=== PATIENT | male | born 1950 | race Caucasian/White ===

== ENCOUNTER → 2018-10-21 23:22 | Outpatient (CLI) | payer MEDICARE, SELFPAY ==
[2018-10-21 18:15] VITALS: BMI 22.8
[2018-10-21 23:58] LABS: PSA,Total- Diagnostic 2.95 ng/mL (0.0-4.0)
--- OUTSIDE RECORDS SUMMARY | 2018-12-24 00:02 | XMS RPT_ITS ---
:1950 Author Organization OHIP Care Team Providers Name Role Phone Velia Perez Attending Unavailable PROVIDER, UNKNOWN Referring Unavailable Perez, Dora Primary Care Unavailable PerezVelia ACOUSTICAL TILE DRILL PRESS OPERATOR-C Attending Unavailable Perez, Dora ACOUSTICAL TILE DRILL PRESS OPERATOR-C Referring Unavailable Perez, Velia ACOUSTICAL TILE DRILL PRESS OPERATOR-C Primary Care Unavailable PROBLEMS PROBLEMS DATE TYPE CONDITION / CODE ATTENDING STATUS SOURCE 10/22/2018 Unknown N40.0 - Benign Perez, Active [place] prostatic Velia ACOUSTICAL TILE DRILL PRESS OPERATOR-C [facility] lower urinary tract Repository symptoms / N40.0(ICD-10) 03/24/2018 Admitting Bilateral primary Perez, Active [facility] Diagnosis osteoarthritis of Velia System hip / M16.0(ICD-10) Repository PROCEDURES PROCEDURES No Procedure Records FoundRESULTS RESULTS OFFICE VISIT Observed: 10/22/2018 Status: F Source: ISIS 1:35 PM [facility] REPOSITORY After Hours Family [facility] [address] [place] [address] OFFICE VISIT Date of Service: 10/21/18 MR#: [id number] Acct: [id number] Name: ASHISH REICH Rep #: [id number] : 1950 Provider: DAPHNE Perez Age/Sex: 68/M Location: [facility] Status: Signed Intake Vital Signs10/21/18 Height 5 ft 8 in 10/21/18 Weight: 150 lb Intake Visit Reasons: RX REFILL, AND BW=PSA Accompanied by: Self Is patient in pain?: No Allergies CHOCOLATE Allergy (Severe, Uncoded 07/15/18 15:57) SINUSES CLOSE UP Medications multivitamin tablet 1 tab PO DAILY 07/15/18 [History Confirmed 07/15/18] ofloxacin 0.3 % ear drops 10 drp OTIC (EAR) DAILY #10 ml 08/07/18 [Rx Confirmed 08/07/18] testosterone 0.1 ml TRANSDERMAL QDAY #3 10/21/18 [Rx Confirmed 10/21/18] [facility] Medical History BPH (benign prostatic hyperplasia) (Acute) COLONOSCOPY 2009 (Acute) Carpal tunnel syndrome, bilateral (Acute) Decreased hearing (Acute) ELEVATED PSA BIOPSY NEG (Acute) Peyronie's disease (Acute) TRAPEZIECTOMY R THUMB (Acute) Trigger finger of left hand (Acute) Surgical History H/O prostate biopsy (Acute) History of rhinoplasty (Acute) Status post fusion of wrist (Acute) Family History Mother Hypertension Father Cancer Heart disease Social History Smoking Status: Never smoker alcohol intake: current substance use type: does not use HPI HPI (General) HPI HPI: ASHISH REICH, is a 68 M who presents to the office today for medication refills and labs. ROS Const Constitutional: No anorexia, body ache, chills, excessive sweating, fatigue, fever(s), frequent falls, headache(s), decreased energy, malaise, night sweats, snoring, weakness, weight change, sleep problems, abnormal sleep pattern, change in appetite or other Eyes Eyes: No blurry vision, change in vision, double vision, discharge, dry eyes, bulging eyes, floaters, visual disturbances, eye pain, light sensitivity, spots in vision, tunnel vision or other ENT ENT: No headache(s), abnormal hearing, ear pain, ear discharge, ear pressure, hearing loss, tinnitus, dizziness/vertigo, balance problems, nosebleed/epistaxis, nasal congestion, nasal obstruction, nose pain, sinus pressure, sinus pain, nasal discharge, post nasal drip, facial pain, dental pain, dry mouth, difficulty swallowing, bad breath, hoarseness, lip swelling, mouth lesions, mouth pain, neck pain, sore throat, tongue swelling, throat swelling or other Resp Respiratory: No snoring, cough, change in phlegm color, chest congestion, excessive phlegm production, hemoptysis, pain on inspiration, shortness of breath, pain with cough, stridor, wheezing or other Cardio Cardiology: No excessive sweating, chest pain at rest, chest pain with exertion, leg pain with exertion, shortness of breath, dyspnea on exertion, generalized swelling, irregular heart rhythm, lightheadedness, orthopnea, radiating jaw, neck or arm pain, fast heart rate, slow heart rate, palpitations or other Gastro GI: No other, No Difficulty Swallowing, No abdominal pain, No belching, No bloating, No change in bowel habits, No change in stool character, No coffee ground emesis, No constipation, No cramping, No diarrhea, No heartburn, No feeling full early, No excessive flatus, No incontinent of stools, No Vomiting blood/hematemesis, No Blood in stool, No loose stools, No Black,tarry stools, No nausea/dyspepsia, No pain with swallowing, No vomiting, No hemorrhoids, No rectal pain Genitourinary: No urinary frequency, difficulty urinating, burning urination, painful urination, urinary urgency or blood in urine Musc Musculoskeletal: No neck pain, abnormal walking, joint pain, back pain, deformity, joint swelling, limited range of motion, loss of height, muscle cramps, muscle weakness, decreased muscle mass, body aches, numbness, radiating pain into limb, stiffness, tingling or other Skin Skin: No acne, hair loss, change in hair, nail changes, boil, change in skin color, dry skin, redness, excessive hair growth, yellowing of the skin, lesions, itching, rash, skin pain, skin ulcer, sores, skin swelling, wounds or other Breast Breast: No other Neuro Neurology: No frequent falls, headache(s), weakness, visual disturbances, abnormal hearing, abnormal walking, numbness, tingling, abnormal movements, abnormal speech, behavioral changes, confusion, unsteady gait/balance, dizziness, lack of coordination, loss of vision, memory loss, restless legs, fainting, tremor(s) or other Psych Psychiatric: No abnormal sleep pattern, No change in appetite, No behavioral changes, No confusion, No memory loss, No lack of enjoyment, No anxiety, No depression, No difficulty concentrating, No hopelessness, No irritability, No mood swings, No panic attacks, No paranoia, No Thoughts of harming yourself/Others, No hallucinations, No other Endo Endo: No excessive sweating, No fatigue, No other Aller/Imm Allergy/Immunologic: No lip swelling, tongue swelling, throat swelling, wheezing or itchy eyes Exam Resp Effort AND Inspection: No stridor GI Rectal Exam: No hemorrhoids Neuro Motor: No weakness Assessment AND Plan Problems 1. Erectile dysfunction due to diseases classified elsewhere N52.1 2. Peyronie disease N48.6 3. Benign prostatic hyperplasia with urinary frequency N40.1; R35.0 Patient Instructions continue the medication as prescribed follow up as needed Orders Orders: Medications New: [testosterone] testosterone 10 % cream, message 0.1 ml0.1 mL Transdermal QDAY #3 12RF with wrist into shoulder alternating with upper arm ever y morning as directed Discontinued: Coding Level of Care Code Off vis,est,level 3 Diagnoses Erectile dysfunction due to diseases classified elsewhere N52.1 Erectile dysfunction type: due to other secondary cause Peyronie disease N48.6 Benign prostatic hyperplasia with urinary frequency N40.1; R35.0 Lower urinary tract symptom detail: urinary frequency Lower urinary tract symptom presence: symptoms present 10/22/18 1335 <Electronically signed by Velia PRYOR> Date Velia PRYOR CC: PSA,TOTAL- DIAGNOSTIC Collected: 10/21/2018 Status: F Source: LAWN 6:40 PM [facility] REPOSITORY TYPE CODE TESTS RESULT OUT OF RANGE REFERENCE UNITS LAB L501.9940 0.0-4.0 ng/mL PSA, Normal DIAGNOSTIC 2.95 Result Comment: This test was performed using the TPSA assay method for the [employer] chemistry system. Values obtained with different assay methods cannot be used interchangably. When changing PSA assays in the course of monitoring a patient, additional sequential testing should be carried out to confirm baseline values. Performed By: #### L501.9940 #### [facility] [address] [place], [address] OFFICE VISIT Observed: 08/08/2018 Status: F Source: LAWN 2:11 PM [facility] REPOSITORY After Hours Family [place] [address] [place] [address] OFFICE VISIT Date of Service: 08/07/18 MR#: [id number] Acct: [id number] Name: ASHISH REICH Rep #: [id number] : 1950 Provider: DAPHNE Perez Age/Sex: 68/M Location: [facility] Status: Signed Intake Vital Signs08/07/18 Height 5 ft 8 in 08/07/18 Weight: 148 lb Intake Visit Reasons: RX REFILL Accompanied by: self Is patient in pain?: No Allergies CHOCOLATE Allergy (Severe, Uncoded 07/15/18 15:57) SINUSES CLOSE UP Medications amoxicillin 875 mg tablet 875 mg PO BID #20 tab 07/15/18 [Rx Confirmed 07/15/18] multivitamin tablet 1 tab PO DAILY 07/15/18 [History Confirmed 07/15/18] testosterone cream SUBDERMAL 07/15/18 [History Confirmed 07/15/18] clarithromycin 500 mg tablet 500 mg PO BID #14 tab 07/22/18 [Rx Confirmed 07/22/18] ciprofloxacin 500 mg tablet 500 mg PO BID #28 tab 08/07/18 [Rx Confirmed 08/07/18] ofloxacin 0.3 % ear drops 10 drp OTIC (EAR) DAILY #10 ml 08/07/18 [Rx Confirmed 08/07/18] PFSH Medical History BPH (benign prostatic hyperplasia) (Acute) COLONOSCOPY 2009 (Acute) Carpal tunnel syndrome, bilateral (Acute) Decreased hearing (Acute) ELEVATED PSA BIOPSY NEG (Acute) Peyronie's disease (Acute) TRAPEZIECTOMY R THUMB (Acute) Trigger finger of left hand (Acute) Surgical History H/O prostate biopsy (Acute) History of rhinoplasty (Acute) Status post fusion of wrist (Acute) Family History Mother Hypertension Father Cancer Heart disease Social History Smoking Status: Never smoker alcohol intake: current substance use type: does not use HPI HPI (General) HPI HPI: ASHISH REICH, is a 68 M who presents to the office today for ear pain was better on the last antibiotics then became muffled again. ROS Const Constitutional: Positive for headache(s) ENT ENT: Positive for headache(s), ear pain, dizziness/vertigo, tinnitus and hearing loss Resp Respiratory: Positive for cough Neuro Neurology: Positive for headache(s) Exam Const Constitutional: Yes cooperative, Yes healthy appearing Orientation: Yes alert, awake and oriented x3 HENMT Head: Yes normocephalic Ear: Yes hearing grossly normal bilaterally TM-Right: normal TM-Left: red, retracted Pinna-Right: within normal limits Pinna-Left: within normal limits Face: Yes normal facial exam Nose: Yes external nose normal Throat: Yes redness Neck Neck: normal visual inspection Lymphadenopathy: Yes cervical (tender L sideof the neck) Thyroid: thyroid normal Eyes General: Yes appearance normal, both eyes and all related structures Chest Chest palpation AND inspection: Yes normal inspection of the chest Resp Effort AND Inspection: Yes normal respiratory effort Auscultation: Yes clear to auscultation bilaterally Cardio Palpitation: Yes normal PMI Rate: Yes regular rate Rhythm: Yes regular rhythm GI Inspection: Yes normal to inspection Auscultation: Yes normal bowel sounds Musc Cervical Spine: Yes cervical ROM normal Thoracic/Lumbar Spine: Yes thoracic and lumbar spine normal to inspection Skin General: no rashes or lesions noted Lesions: Yes no lesions Extrem General: Yes normal to inspection Neuro General: Yes alert and oriented x3 Psych Appearance: Positive grossly normal Mood: Positive congruent mood Affect: Positive normal affect Assessment AND Plan Problems 1. Left otitis media with effusion H65.92 2. Dizziness R42 3. Lymphadenopathy R59.1 Patient Instructions Take the antibiotic till gone with food or not for 10 days use the ear drops daily for 10 days L ear follow up if not improving and will refer to ENT Medications New: Coding Level of Care Code Off vis,est,level 3 Diagnoses Left otitis media with effusion H65.92 Dizziness R42 Lymphadenopathy R59.1 08/08/18 1411 <Electronically signed by Velia PRYOR> Date Velia PRYOR CC: OFFICE VISIT Observed: 07/22/2018 Status: F Source: ISIS 2:00 PM [facility] REPOSITORY After Hours Family [facility] [address] [place] [address] OFFICE VISIT Date of Service: 07/22/18 MR#: [id number] Acct: [id number] Name: ASHISH REICH Rep #: [id number] : 1950 Provider: DAPHNE Perez Age/Sex: 68/M Location: [facility] Status: Signed Intake Vital Signs07/22/18 Height 5 ft 8 in 07/22/18 Weight: 148 lb Intake Visit Reasons: ears bothering him Accompanied by: self Is patient in pain?: Yes Allergies CHOCOLATE Allergy (Severe, Uncoded 07/15/18 15:57) SINUSES CLOSE UP Medications amoxicillin 875 mg tablet 875 mg PO BID #20 tab 07/15/18 [Rx Confirmed 07/15/18] multivitamin tablet 1 tab PO DAILY 07/15/18 [History Confirmed 07/15/18] testosterone cream SUBDERMAL 07/15/18 [History Confirmed 07/15/18] clarithromycin 500 mg tablet 500 mg PO BID #14 tab 07/22/18 [Rx Confirmed 07/22/18] PFSH Medical History BPH (benign prostatic hyperplasia) (Acute) COLONOSCOPY 2009 (Acute) Carpal tunnel syndrome, bilateral (Acute) Decreased hearing (Acute) ELEVATED PSA BIOPSY NEG (Acute) Peyronie's disease (Acute) TRAPEZIECTOMY R THUMB (Acute) Trigger finger of left hand (Acute) Surgical History H/O prostate biopsy (Acute) History of rhinoplasty (Acute) Status post fusion of wrist (Acute) Family History Mother Hypertension Father Cancer Heart disease Social History Smoking Status: Never smoker alcohol intake: current substance use type: does not use HPI HPI (General) HPI HPI: ASHISH REICH, is a 68 M who presents to the office today for ear pain and pressure in the head and headaches. Did not go to work becasue feeling worse Finished the course of amox and was starting to drain but then started up again , unable to hear . ROS Const Constitutional: Positive for chills, fever(s) and headache(s) ENT ENT: Positive for headache(s), ear pain, balance problems, dizziness/vertigo, nasal congestion, post nasal drip, nasal discharge and facial pain Resp Respiratory: Positive for cough Cough: Yes non-productive Gastro GI: Yes loose stools, Yes nausea/dyspepsia Neuro Neurology: Positive for headache(s) Exam Const Constitutional: Yes cooperative Nutritional Appearance: Yes average body habitus Orientation: Yes oriented x3 HENMT Head: Yes normocephalic Ear: Yes hearing grossly normal bilaterally TM-Right: red TM-Left: red, wax Pinna-Right: within normal limits Pinna-Left: within normal limits Face: Yes normal facial exam Nose: Yes external nose normal Throat: Yes redness, Yes swollen Neck Neck: normal visual inspection Eyes General: Yes appearance normal, both eyes and all related structures Resp Effort AND Inspection: Yes normal respiratory effort Auscultation: Yes clear to auscultation bilaterally Cardio Palpitation: Yes normal PMI Rate: Yes regular rate Rhythm: Yes regular rhythm GI Inspection: Yes normal to inspection Musc Cervical Spine: Yes cervical ROM normal Thoracic/Lumbar Spine: Yes thoracic and lumbar spine normal to inspection Skin General: no rashes or lesions noted Extrem General: Yes normal to inspection Neuro General: Yes oriented x3 Psych Appearance: Positive grossly normal Office Procedures Cerumen Removal BMS Cerumen Removal Procedure Procedure performed by: Velia Perez Method of removal: loop and irrigation From which ear canal was the cerumen removed: left Amount of Cerumen: moderate Patient tolerated procedure: well Complications: none Assessment AND Plan Problems 1. Dizziness R42 2. Impacted cerumen of left ear H61.22 3. Recurrent acute serous otitis media of both ears H65.06 Patient Instructions Take the antibiotics till gone with food or after eating push the fluids and continue using decongestants for the time on the antibiotics Orders Orders: Medications New: Coding Level of Care Code Off vis,est,level 3 Diagnoses Dizziness R42 Impacted cerumen of left ear H61.22 Laterality: left Recurrent acute serous otitis media of both ears H65.06 Otitis media type: serous Chronicity: acute Recurrence: recurrent 07/22/18 1400 <Electronically signed by Velia PRYOR> Date Velia PRYOR CC: OFFICE VISIT Observed: 07/15/2018 Status: F Source: ISIS 6:38 PM [facility] REPOSITORY After Hours Family Medicine [address] [place] [address] OFFICE VISIT Date of Service: 07/15/18 MR#: [id number] Acct: [id number] Name: ASHISH REICH Rep #: [id number] : 1950 Provider: DAPHNE Perez Age/Sex: 68/M Location: [facility] Status: Signed Intake Vital Signs07/15/18 Height 5 ft 8 in 07/15/18 Weight: 147 lb Intake Visit Reasons: ear pain Accompanied by: self Is patient in pain?: Yes Allergies CHOCOLATE Allergy (Severe, Uncoded 07/15/18 15:57) SINUSES CLOSE UP Medications amoxicillin 875 mg tablet 875 mg PO BID #20 tab 07/15/18 [Rx Confirmed 07/15/18] multivitamin tablet 1 tab PO DAILY 07/15/18 [History Confirmed 07/15/18] testosterone cream SUBDERMAL 07/15/18 [History Confirmed 07/15/18] PFSH Medical History BPH (benign prostatic hyperplasia) (Acute) COLONOSCOPY 2009 (Acute) Carpal tunnel syndrome, bilateral (Acute) Decreased hearing (Acute) ELEVATED PSA BIOPSY NEG (Acute) Peyronie's disease (Acute) TRAPEZIECTOMY R THUMB (Acute) Trigger finger of left hand (Acute) Surgical History H/O prostate biopsy (Acute) History of rhinoplasty (Acute) Status post fusion of wrist (Acute) Family History Mother Hypertension Father Cancer Heart disease Social History Smoking Status: Never smoker alcohol intake: current substance use type: does not use HPI HPI (General) HPI HPI: Ashish Reich, is a 68 M who presents to the office today for L ear pain for 10 days. not used anything. ROS Const Constitutional: Positive for headache(s) ENT ENT: Positive for headache(s) and ear pain (L side) Neuro Neurology: Positive for headache(s) Exam Const Constitutional: Yes cooperative, Yes healthy appearing Orientation: Yes alert, awake and oriented x3 HENMT Head: Yes normocephalic Ear: Yes hearing grossly normal bilaterally TM-Right: normal TM-Left: red Pinna-Right: within normal limits Pinna-Left: within normal limits Face: Yes normal facial exam Nose: Yes external nose normal Mouth: Yes oral mucosae normal Teeth and Gingiva: Yes dentition normal Throat: Yes posterior oropharynx normal Neck Neck: normal visual inspection Thyroid: thyroid normal Eyes General: Yes appearance normal, both eyes and all related structures Chest Chest palpation AND inspection: Yes normal inspection of the chest Resp Effort AND Inspection: Yes normal respiratory effort Auscultation: Yes clear to auscultation bilaterally Cardio Palpitation: Yes normal PMI Rate: Yes regular rate Rhythm: Yes regular rhythm GI Inspection: Yes normal to inspection Auscultation: Yes normal bowel sounds Musc Cervical Spine: Yes cervical ROM normal Thoracic/Lumbar Spine: Yes thoracic and lumbar spine normal to inspection Skin General: no rashes or lesions noted Lesions: Yes no lesions Extrem General: Yes normal to inspection Neuro General: Yes alert and oriented x3 Psych Appearance: Positive grossly normal Mood: Positive congruent mood Affect: Positive normal affect Assessment AND Plan Problems 1. Acute serous otitis media of left ear, recurrence not specified H65.02 2. Lymphadenopathy R59.1 Patient Instructions Take the antibiotic till gone Push the fluids . follow up as needed Medications New: Coding Level of Care Code Off vis,est,level 3 Diagnoses Acute serous otitis media of left ear, recurrence not specified H65.02 Otitis media type: serous Chronicity: acute Recurrence: not specified as recurrent Lymphadenopathy R59.1 07/15/18 1838 <Electronically signed by Velia PRYOR> Date Velia PRYOR CC: CR HIP W/ PELVIS 2 Observed: 03/24/2018 Status: F Source: [employer] OR 3 VIEWS LEFT 1:55 PM SYSTEM REPOSITORY Patient Name: ASHISH REICH Diagnostic Radiology Exam Date/Time 03/24/2018 12:30:00 EDT Exam CR Hip w/ Pelvis 2 or 3 Views Left n Ordering Physician EMMA PEREZ DORA L Accession Number [id number] CPT4 Codes 49884 () Reason For Exam pain Report LEFT HIP CLINICAL INDICATION: Left hip pain A single AP view of the pelvis followed by AP and lateral views of the left hip were obtained. COMPARISON: None FINDINGS: No fracture or dislocation of the pelvis or left hip is identified. Mild loss of joint space and acetabular spurring is noted within the left and right hip joints. The sacroiliac joints appear grossly unremarkable. No lytic or blastic bony lesions are seen. IMPRESSION: No fracture or dislocation of the pelvis or left hip. Mild osteoarthritis of the bilateral hips. Report Dictated on Final Dictating Physician: BISHNU HOLLOWAY Signed Date and Time: 03/24/2018 1:55 pm Signed by: BISHNU HOLLOWAY Transcribed Date and Time: 03/24/2018 1:56 ALLERGIES ALLERGIES DATE TYPE / CODE NAME / CODE REACTION SEVERITY SOURCE 07/15/2018 Miscellaneous CHOCOLATE SINUSES CLOSE SV [facility] Allergy/[id number](S [facility] Hospital Repository ENCOUNTERS ENCOUNTERS ADMIT/DISCHARGE ACCOUNT NUMBER ADMITTING ENCOUNTER LOCATION SOURCE CLASS 10/21/2018 [id number] [facility] ding:[facility]SPEC Repository 03/24/2018 [id number] [facility] Repository PAYERS PAYERS ENCOUNTER GUARANTOR PAYER SUBSCRIBER SOURCE 10/21/2018 [facility]A [id number] Insurance:MEDICARE [place]FIELDDOB: [facility] PART A [facility] [id number] Repository [id number]: [phone] [id number] [phone] () Date:2018-10-21 10/21/2018 [facility] Number: Effective Repository Date:2018-10-21 03/24/2018 [facility] Insurance:MedicarePol [place]DOB: System [id number] icy Number: Effective [id number] Repository Center Date:2016-02-29 [place], [place] [address]Aau: () 03/24/2018 Secondary [facility] Insurance:MedicarePol Elemental Cyber SecuritybergerDOB: System icy Number: Effective [id number] Repository Date:2017-03-30
== END ==
PROVIDERS: Family Provider Nurse Practitioner; PCP Nurse Practitioner; Referring Provider Nurse Practitioner; Visit Provider Nurse Practitioner
DX: N40.0 Benign prostatic hyperplasia without lower urinary tract symptoms (principal)
CPT/HCPCS: 84153

== ENCOUNTER → 2019-05-05 | Outpatient (CLI) | payer MEDICARE, SELFPAY ==
[2019-05-04 18:09] VITALS: BMI 22.8
[2019-05-05 22:28] LABS: Absolute Lymphocyte Count 1.85 X10^3/uL (0.83-4.51); Absolute Neutrophil Count 3.7 X10^3/uL (2.0-7.7); Basophil# 0.06 X10^3/uL; Basophil% 0.9 % (0-1); Eosinophil# 0.45 X10^3/uL; Eosinophils% 6.8 % (0-5); Hematocrit 42.6 % (40-54); Hemoglobin 14.2 g/dL (13.0-16.5); Lymphocyte # 1.85 X10^3/ul (4.0); Lymphocyte % 27.9 % (19-41); Mean Corp Hgb Conc 33.3 g/dL (32-36); Mean Corpuscular Hgb 30.7 pg (27.0-32.0); Mean Platelet Vol. 11.8 fl (6.2-12.0); Monocyte# 0.57 X10^3/uL; Monocyte% 8.6 % (0-10); NRBC Flagged by Analyzer 0 % (0-5); Neutrophil # 3.69 X10^3/uL (2.7-7.7); Neutrophil % 55.5 % (47-70); Platelet Count 224 K/mm3 (150-450); RBC Distribution Width CV 13.7 % (11.6-14.6); RBC Distribution Width SD 46.2 fl (35.1-43.9); Red Blood Count 4.63 M/mm3 (4.6-6.2); White Blood Count 6.6 K/mm3 (4.4-11.0)
[2019-05-05 22:40] LABS: PSA,Total- Diagnostic 2.71 ng/mL (0.0-4.0)
== END | disposition home or self-care (01) ==
PROVIDERS: Family Provider Nurse Practitioner; PCP Nurse Practitioner; Referring Provider Nurse Practitioner; Visit Provider Nurse Practitioner
DX: N40.0 Benign prostatic hyperplasia without lower urinary tract symptoms (principal); E29.1 Testicular hypofunction; N48.6 Induration penis plastica
CPT/HCPCS: 84153; 84402; 85025

== ENCOUNTER → 2019-10-14 21:49 | Outpatient (CLI) | payer MEDICARE, SELFPAY ==
[2019-10-14 17:12] VITALS: BMI 22.8
[2019-10-14 22:20] LABS: Absolute Lymphocyte Count 1.83 X10^3/uL (0.83-4.51); Basophil# 0.08 X10^3/uL; Basophil% 1.1 % (0-1); Eosinophil# 0.44 X10^3/uL; Eosinophils% 6.3 % (0-5); Hematocrit 41.6 % (40-54); Hemoglobin 13.8 g/dL (13.0-16.5); Lymphocyte # 1.83 X10^3/ul (4.0); Lymphocyte % 26.1 % (19-41); Mean Corp Hgb Conc 33.2 g/dL (32-36); Mean Corpuscular Hgb 30.2 pg (27.0-32.0); Monocyte# 0.66 X10^3/uL; Monocyte% 9.4 % (0-10); NRBC Flagged by Analyzer 0 % (0-5); Neutrophil # 3.98 X10^3/uL (2.7-7.7); Platelet Count 230 K/mm3 (150-450); RBC Distribution Width CV 12.8 % (11.6-14.6); RBC Distribution Width SD 42.5 fl (35.1-43.9); Red Blood Count 4.57 M/mm3 (4.6-6.2)
[2019-10-14 22:22] LABS: ALB/GLOB Ratio 1.3 RATIO (0.9-2.4); AST(SGOT) 23 U/L (15-37); Alanine Aminotransfer ALT/SGPT 27 U/L (16-61); Albumin, Serum 4.1 g/dL (3.2-5.0); Alkaline Phosphatase 42 U/L (45-117); Anion Gap 6 (5-15); BUN 21 mg/dL (7-18); BUN/Creat Ratio 16.9 RATIO (10-20); Calcium,Total 8.9 mg/dL (8.5-10.1); Chloride 107 mmol/L (98-107); Cholesterol 214 mg/dL (200); Creatinine, Serum 1.24 mg/dL (0.70-1.30); EST Glomerular Filtration Rate 62 mL/min (>60); Est Glom Filt Rate - Afr Amer 74 mL/min (>60); Globulin 3.2 g/dL (2.2-4.2); Glucose 90 mg/dL (74-106); High Density Lipoprotein 92 mg/dL; PSA,Total- Diagnostic 2.92 ng/mL (0.0-4.0); Potassium 3.9 mmol/L (3.5-5.1); Protein, Total 7.3 g/dL (6.4-8.2); Sodium Level 139 mmol/L (136-145); Triglycerides 68 mg/dL; Very Low Density Lipoprotein 14 mg/dL (5-40)
== END ==
PROVIDERS: Referring Provider Nurse Practitioner; Visit Provider Nurse Practitioner
DX: N40.0 Benign prostatic hyperplasia without lower urinary tract symptoms (principal); N48.6 Induration penis plastica; E78.00 Pure hypercholesterolemia, unspecified
CPT/HCPCS: 80053; 80061; 84153; 85025

== ENCOUNTER → 2019-11-17 | Outpatient (CLI) | payer MEDICARE, SELFPAY ==
[2019-10-14 17:12] VITALS: BMI 22.8
[2019-11-17 11:12] LABS: Mucous, Urine 0 SEEN /hpf (<or=2+)
[2019-11-17 11:41] LABS: Color, Urine Yellow (Yellow); Glucose, Dipstick Normal (Normal); Ketone-Dipstick 5 mg/dl (Negative); Leukocyte Esterase-Dipstick 25 /ul (Negative); Nitrite-Dipstick Negative (Negative); Occult Blood-Urine 10 /ul (Negative); Protein-Dipstick Negative (Negative); Urine Bilirubin Dipstick Negative (Negative); Urine Clarity Clear (Clear); Urine Urobilinogen Normal (Normal)
[2019-11-17 11:54] LABS: Bacteria RARE /hpf (None Seen); Red Blood Cells-Urine 0-5 SEEN /hpf (0-5); Squamous Epithelial Cells - UA 0-5 SEEN /hpf (0-5); White Blood Cells 0-5 SEEN /hpf (0-5)
== END | disposition home or self-care (01) ==
LOC: LABSPEC 10:50
PROVIDERS: PCP Nurse Practitioner; Referring Provider Nurse Practitioner; Visit Provider Urology
DX: R31.9 Hematuria, unspecified (principal)
CPT/HCPCS: 81001

== ENCOUNTER → 2020-04-27 | Outpatient (CLI) | payer MEDICARE, SELFPAY ==
[2019-10-14 17:12] VITALS: BMI 22.8
--- NOTE | 2020-04-27 | IMM_PTH ---
PATIENT: ASHISH REICH LOC: [facility] U#:[id number] AGE/SX: 70/M ROOM: RE04/27/[address]: ROYA Jha : 1950 BED: DIS: 04/27/2020 SPEC #: [id number] RECD: 04/29/20 12:01 STATUS: NA DEWAYNE #: [id number] FRANK: 04/27/20 00:[address]: Velia Perez NP DEPT: IMMUNOHISTOCHEMISTRY RECD BY: Ange Mcgraw Tissues: Skin of chest Procedures: P53 (initial) KI-67 (add) PHYSICIAN & INSTITUTION [place] [address] SPECIMEN INFORMATION: Tissue Source: Left chest wall lesion Clinical Info: Left chest wall lesion Specimen Number: [id number] CPT code: 14352, 98408 METHODOLOGY: Deparaffinized sections of prefer/formalin-fixed tissue or PAP/DQ stained slides are incubated with monoclonal/polyclonal antibodies/oligonucleotide probes. Localization is made via biotin free immunoperoxidase method. Appropriate controls are performed and reacted as expected. Results on target cell population are indicated in the following table: RESULTS: ANTIBODY / CLONE RESULT P53 (DO-7) positive, 8% Ki-67 (30-9) positive, low These tests were developed and their performance characteristics determined by [facility]. They may not have been cleared or approved by the U.S. Food and Drug Administration. The FDA has determined that such clearance or approval is not necessary. The above immunohistochemical/dualISH markers are ordered and reviewed by the Pathologist. INTERPRETATION: Left chest wall lesion, biopsy: Atypical squamous lesion with verrucoid features. AM:aline 05/03/20 Case has been reviewed in consultation with Dr. Bob who concurs with the above diagnosis. IDC:SJ
--- NOTE | 2020-04-27 | LES_PTH ---
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 AM:aline 04/29/20 COMMENT Immunohistochemistry ([id number]) supports the above diagnosis. If lesion is present at this site, complete excision is recommended. Case has been reviewed in consultation with Dr. Bob who concurs with the above diagnosis. IDC:[email or web address] MICROSCOPIC DESCRIPTION Slides are reviewed. GROSS DESCRIPTION Received is one container labeled with the patient's name and not further designated. The specimen consists of a punch biopsy of kilgore-white skin measuring 0.5 x 0.4 x 0.3 cm. The entire specimen is submitted in one cassette. / BELINDA:aline 04/28/20 TC:? CPT: 53964
== END | disposition home or self-care (01) ==
PROVIDERS: PCP Nurse Practitioner; Referring Provider Nurse Practitioner; Visit Provider Nurse Practitioner
DX: L98.9 Disorder of the skin and subcutaneous tissue, unspecified (principal)
CPT/HCPCS: 88305; 88341; 88342

== ENCOUNTER 2021-06-21 09:40 | Day surgery (SDC) | payer MEDICARE, SELFPAY ==
[2021-06-21] VITALS (7 sets, daily range): BP systolic 113–151; BP diastolic 78–97; PULSE 71–103; RESP 14–16; TEMP 36.1–36.7; O2SAT 94–98; BMI 22.8
[2021-06-21] MEDS: Lactated Ringers 1,000 ML 100 ML IV ×2 (09:55→12:31)
--- NOTE | 2021-06-21 10:52 | EKG12_ITS ---
Test Reason : PRE OP Blood Pressure : / mmHG Vent. Rate : 100 BPM Atrial Rate : 100 BPM P-R Int : 172 ms QRS Dur : 076 ms QT Int : 336 ms P-R-T Axes : 066 032 060 degrees QTc Int : 433 ms Normal sinus rhythm Nonspecific ST abnormality Abnormal ECG Confirmed by LIUDMILA LIN, GANGA ([id number]), manager editorial LYDIA MOORE ([id number]) on 06/21/2021 10:53:31 AM Referred By: Mark Preston Confirmed By:GANGA NUR MD
[2021-06-21] MEDS: Cefazolin 2 GM in 0.9% Normal Saline 100 ML IV (11:54)
--- NOTE | 2021-06-21 12:00 | PROS_PTH ---
PATIENT: ASHISH REICH LOC: [facility] U#:[id number] AGE/SX: 71/M ROOM: RE06/21/[address]: Dr. Mark Preston MD : 1950 BED: DIS: 06/21/2021 SPEC #: [id number] RECD: 06/21/21 13:12 STATUS: NA DEWAYNE #: [id number] FRANK: 06/21/21 12:[address]: Mark Preston DEPT: SURGICAL PATHOLOGY RECD BY: Roxane Means ENTERED: 06/21/21 14:23 SP TYPE: TURP OTHR DR: Velia Perez, SORT MANAGER-C Tissues: Prostate, NOS Procedures: Surgery Specimen Level IV HEADER OPERATION: Cysto, TUR prostate, Olympus PRE-OP DIAGNOSIS: Benign prostatic hyperplasia, lower urinary tract symptoms TISSUE SUBMITTED: Prostate tissue MICROSCOPIC DIAGNOSIS Prostate, transurethral resection: Benign nodular hyperplasia, glandular and stromal types. Chronic prostatitis with focal acute prostatitis. AM:aline 06/23/2021 MICROSCOPIC DESCRIPTION Slides are reviewed. GROSS DESCRIPTION Received is one container labeled with the patient's name and designated prostate tissue. The specimen consists of multiple irregular fragments of pink-kilgore, rubbery, soft tissue that in aggregate weigh 5.7 gm and measure in aggregate 4 x 3 x 1.5 cm. The entire specimen is submitted in six cassettes. / BELINDA:aline 06/22/21 TC:2 CPT: 98110
--- NOTE | 2021-06-21 12:07 | PCM.DC ---
Discharge Instructions Diet Discharge Diet: No restrictions Activity Discharge Activity: Return to Normal Activity and May Not Drive (while taking narcotic pain medications.) Dressing / Incision Call your doctor if you observe: Fever of 101 or Higher Catheter: Wills to leg bag and Wills to large bag Drain: [place] Follow Up Care Please Follow Up With: Mark Preston MD When: Call [phone] for an appointment Test Results: Test results from this visit will be discussed in further detail at your follow-up appointment, if applicable. Discharge Plan Admission Primary Reason for Your Visit: YADIRA Attending Provider: Mark Preston Primary Care Provider: Velia Perez NP Instructions Patient Instructions: TURP Home Recovery Discharge Orders/Prescriptions Prescriptions: New ciprofloxacin HCl [Cipro] 500 mg tablet 500 mg PO BID Qty: 14 RF: 0 docusate sodium [Colace] 100 mg capsule 100 mg PO BID Qty: 20 RF: 0 oxycodone-acetaminophen 5-325 mg tablet 1 tab PO Q6H PRN (Reason: pain) 7 Days Qty: 14 RF: 0 Continued multivitamin [Daily Multi-Vitamin] tablet 1 tab PO DAILY RF: 0 alfuzosin 10 mg tablet extended release 24 hr 10 mg PO DAILY RF: 0 testosterone 1 ml TOPICAL DAILY Qty: 3 RF: 6 magnesium 200 mg Tablet 400 mg PO DAILY RF: 0 omega-3 fatty acids Capsule 1,000 mg PO DAILY RF: 0 Referrals / Follow Up: Mark Preston MD [STAFF PHYSICIAN] - Velia Perez NP, METAL MELTER-C [Primary Care Provider] - Disposition Disposition (needs filled in before D/C Order can be placed): Home, Self Care
--- NOTE | 2021-06-21 12:57 | OP.PCM_ITS ---
Problems Associated Problem List Diagnoses (1) BPH (benign prostatic hyperplasia): Report of Operation Date of Procedure: 06/21/21 Pre-Operative Diagnosis: BPH with obstruction Post-Operative Diagnosis: Same Description of Surgical Findings:: In the preoperative setting I discussed with the patient how the surgery would be done with expect afterwards. We discussed how a prostate resection is done and we discussed the risk of the surgery including, bleeding, infection, retrograde ejaculation, changes with ejaculation or intercourse,. We discussed the possibility that the resection of the prostate may not alleviate his urinary symptoms. We discussed the small risk of developing scar tissue along the urethral channel and strictures. We also discussed the chance of the prostate could grow back and he may need further surgery or treatment in the future for prostate problems. Patient was taken back to the operating room, timeout procedure was performed, he was identified and marked and placed on the operating room table. He underwent general anesthesia. He was placed in dorsolithotomy position. Penis and testicles were prepped and draped in usual sterile fashion. Went into the bladder using the visual obturator with a resectoscope. Once inside the bladder identified the right and left ureteral orifice. I then identified the prostate and the anatomy of the prostate. I marked out the area of the sphincter and the verumontanum was identified. I then proceeded with the prostate resection first resected the median lobe. And then resected the right lobe of the prostate. Then to resect the left lobe of the prostate. I then resected the apical tissue of the prostate. Made sure that there was no injury to the sphincter or the verumontanum was still intact. At the end of the resection all the chips were Ellik out of the bladder. I then identified the left and right ureteral orifice and these were confirmed to be in good position and effluxing and not injured. The resectoscope was removed, a 20 Arabic catheter was placed into the bladder. And the urine was fairly light pink color and draining normally. He was taken back to the PACU in good condition Surgeon: lilia Type of Anesthesia: General Drains: 20 fr jaquez Admit VTE Documentation VTE Present on Admission: No VTE Mechan Device Prophylaxis: SCD's VTE Pharm Prophylaxis ordered?: No
== END 2021-06-21 15:09 | disposition home or self-care (01) ==
LOC: SDC 09:46 → AC 09:47
PROVIDERS: PCP Nurse Practitioner; Referring Provider Urology; Visit Provider Urology
PROC: (CPT 52601; principal; 2021-06-21 11:50)
DX: N40.1 Benign prostatic hyperplasia with lower urinary tract symptoms (principal); N13.8 Other obstructive and reflux uropathy; R33.8 Other retention of urine
CPT/HCPCS: 00914; 52601; 87426; 88305; 93005; C9803; J7120; J2405

== ENCOUNTER → 2021-09-13 | Outpatient (CLI) | payer MEDICARE, SELFPAY ==
[2021-09-13 21:50] LABS: Absolute Lymphocyte Count 1.76 X10^3/uL (0.83-4.51); Absolute Neutrophil Count 3.8 X10^3/uL (2.0-7.7); Basophil# 0.11 X10^3/uL; Basophil% 1.6 % (0-1); Eosinophil# 0.42 X10^3/uL; Eosinophils% 6.2 % (0-5); Hemoglobin 14.5 g/dL (13.0-16.5); Lymphocyte # 1.76 X10^3/ul (0.83-4.51); Lymphocyte % 25.8 % (19-41); Mean Corp Hgb Conc 33.7 g/dL (32-36); Mean Corpuscular Hgb 30.3 pg (27.0-32.0); Mean Platelet Vol. 11.9 fl (6.2-12.0); Monocyte# 0.71 X10^3/uL; Monocyte% 10.4 % (0-10); NRBC Flagged by Analyzer 0 % (0-5); Neutrophil % 55.7 % (47-70); Platelet Count 220 K/mm3 (150-450); RBC Distribution Width CV 13.7 % (11.6-14.6); RBC Distribution Width SD 45.1 fl (35.1-43.9); Red Blood Count 4.78 M/mm3 (4.6-6.2); White Blood Count 6.8 K/mm3 (4.4-11.0)
[2021-09-13 22:17] LABS: ALB/GLOB Ratio 1.1 RATIO (0.9-2.4); AST(SGOT) 28 U/L (15-37); Alanine Aminotransfer ALT/SGPT 33 U/L (16-61); Albumin, Serum 4.1 g/dL (3.2-5.0); Alkaline Phosphatase 47 U/L (45-117); Anion Gap 7 (5-15); BUN 20 mg/dL (7-18); BUN/Creat Ratio 20.2 RATIO (10-20); Chloride 103 mmol/L (98-107); Cholesterol 232 mg/dL (200); Creatinine, Serum 0.99 mg/dL (0.70-1.30); EST Glomerular Filtration Rate 79 mL/min (>60); Est Glom Filt Rate - Afr Amer 96 mL/min (>60); Globulin 3.7 g/dL (2.2-4.2); Glucose 80 mg/dL (74-106); High Density Lipoprotein 105 mg/dL; PSA,Total- Diagnostic 2.45 ng/mL (0.0-4.0); Potassium 4.2 mmol/L (3.5-5.1); Protein, Total 7.8 g/dL (6.4-8.2); Sodium Level 138 mmol/L (136-145); Thyroid Stim Hormone (TSH) 3.02 uIU/mL (0.358-3.74); Triglycerides 91 mg/dL; Very Low Density Lipoprotein 18 mg/dL (5-40)
[2021-09-13 22:45] LABS: Vitamin B12 565 pg/mL (211-911)
== END | disposition home or self-care (01) ==
PROVIDERS: PCP Nurse Practitioner; Visit Provider Nurse Practitioner
DX: N40.0 Benign prostatic hyperplasia without lower urinary tract symptoms (principal); N52.1 Erectile dysfunction due to diseases classified elsewhere; R25.1 Tremor, unspecified
CPT/HCPCS: 80053; 80061; 82607; 84153; 84443; 85025

== ENCOUNTER → 2022-12-11 | Outpatient (CLI) | payer MEDICARE, SELFPAY ==
[2022-12-11 11:06] LABS: PSA,Total - Annual Screen 1.89 ng/mL (0.00-4.00)
== END | disposition home or self-care (01) ==
PROVIDERS: PCP Nurse Practitioner; Referring Provider Registered Nurse; Visit Provider Registered Nurse
DX: Z12.5 Encounter for screening for malignant neoplasm of prostate (principal)
CPT/HCPCS: 36415; 84153; G0103

== ENCOUNTER → 2023-07-01 | Outpatient (CLI) | payer MEDICARE, SELFPAY ==
[2023-07-01 22:56] LABS: Absolute Neutrophil Count 3.7 X10^3/uL (2.0-7.7); Basophil# 0.11 X10^3/uL; Basophil% 1.7 % (0-1); Eosinophils% 6.2 % (0-5); Hemoglobin 14.6 g/dL (13.0-16.5); Lymphocyte % 26.3 % (19-41); Mean Corp Hgb Conc 32.4 g/dL (32-36); Mean Corpuscular Hgb 30.9 pg (27.0-32.0); Mean Corpuscular Volume 95.3 fL (80-94); Monocyte# 0.59 X10^3/uL; Monocyte% 9.1 % (0-10); NRBC Flagged by Analyzer 0 % (0-5); Neutrophil # 3.66 X10^3/uL (2.7-7.7); Neutrophil % 56.5 % (47-70); Platelet Count 233 K/mm3 (150-450); RBC Distribution Width CV 13.2 % (11.6-14.6); RBC Distribution Width SD 46.7 fl (35.1-43.9); Red Blood Count 4.72 M/mm3 (4.6-6.2); White Blood Count 6.5 K/mm3 (4.4-11.0)
[2023-07-01 23:08] LABS: ALB/GLOB Ratio 1.2 RATIO (0.9-2.4); AST(SGOT) 24 U/L (15-37); Alanine Aminotransfer ALT/SGPT 37 U/L (16-61); Albumin, Serum 4.1 g/dL (3.2-5.0); Alkaline Phosphatase 41 U/L (45-117); Anion Gap 4 (5-15); BUN 18 mg/dL (7-18); BUN/Creat Ratio 18.5 RATIO (10-20); Calcium,Total 9.6 mg/dL (8.5-10.1); Chloride 105 mmol/L (98-107); Cholesterol 240 mg/dL (200); Creatinine, Serum 0.97 mg/dL (0.70-1.30); EST Glomerular Filtration Rate 80 mL/min (>60); Est Glom Filt Rate - Afr Amer 97 mL/min (>60); Globulin 3.4 g/dL (2.2-4.2); Glucose 109 mg/dL (74-106); High Density Lipoprotein 104 mg/dL; Potassium 4.2 mmol/L (3.5-5.1); Protein, Total 7.5 g/dL (6.4-8.2); Sodium Level 141 mmol/L (136-145); Triglycerides 125 mg/dL; Very Low Density Lipoprotein 25 mg/dL (5-40)
== END | disposition home or self-care (01) ==
PROVIDERS: PCP Nurse Practitioner; Visit Provider Nurse Practitioner
DX: N52.9 Male erectile dysfunction, unspecified (principal); N40.0 Benign prostatic hyperplasia without lower urinary tract symptoms; E78.00 Pure hypercholesterolemia, unspecified; H65.02 Acute serous otitis media, left ear
CPT/HCPCS: 80053; 80061; 85025

== ENCOUNTER → 2023-07-09 | Outpatient (CLI) | payer MEDICARE, SELFPAY ==
--- NOTE | 2023-07-09 | TISS_PTH ---
PATIENT: ASHISH REICH LOC: [facility] U#:[id number] AGE/SX: 73/M ROOM: RE07/09/[address]: ROYA Jha : 1950 BED: DIS: 07/09/2023 SPEC #: [id number] RECD: 07/10/23 10:05 STATUS: NA DEWAYNE #: [id number] FRANK: 07/09/23 00:[address]: Velia Perez NP DEPT: SURGICAL PATHOLOGY RECD BY: Roxane Means Tissues: Skin of head, NOS Procedures: Surgery Specimen Level IV HEADER OPERATION: Biopsy PRE-OP DIAGNOSIS: Neoplasm skin TISSUE SUBMITTED: Biopsy 6 mm scalp MICROSCOPIC DIAGNOSIS Skin lesion of scalp, punch biopsy: Atypical verrucoid keratosis. Solar elastosis. See comment. AM:aline 07/11/2023 COMMENT Complete excision of lesion is recommended for definite classification. MICROSCOPIC DESCRIPTION Slides are reviewed. GROSS DESCRIPTION Received is one container labeled with the patient's name and not further designated. The specimen consists of a light kilgore punch biopsy of skin measuring 0.6 cm in diameter and 0.4 cm in length. The specimen is totally submitted in one cassette. / AM:aline 07/10/2023 TC:? CPT: 45749
== END | disposition home or self-care (01) ==
PROVIDERS: PCP Nurse Practitioner; Visit Provider Nurse Practitioner
DX: D48.5 Neoplasm of uncertain behavior of skin (principal)
CPT/HCPCS: 88305

== ENCOUNTER → 2024-01-02 | Outpatient (CLI) | payer MEDICARE, SELFPAY | END | disposition home or self-care (01) | LOC: LAB 08:36 | PROVIDERS: PCP Nurse Practitioner; Referring Provider Nurse Practitioner; Visit Provider Nurse Practitioner | DX: Z12.5 Encounter for screening for malignant neoplasm of prostate (principal) | CPT/HCPCS: 36415; 84153; G0103 ==

== ENCOUNTER → 2024-01-14 | Outpatient (CLI) | payer MEDICARE, SELFPAY ==
--- NOTE | 2024-01-14 17:35 | CT_ITS ---
STUDY: CT ABDOMEN AND PELVIS WITH AND WITHOUT CONTRAST REASON FOR EXAM: Male, 73 years old. GROSS HEMATURIA RADIATION DOSAGE (If Supplied By Facility): CTDIvol = ( 16.10 ) mGy, DLP = ( 1466.69 ) mGycm TECHNIQUE: Transaxial images were obtained from the dome of the diaphragm to the symphysis pubis without oral contrast. IV 100mL Isovue-300 was administered. Sagittal and coronal images were reconstructed. Individualized dose optimization techniques were used for this CT. COMPARISON: None. FINDINGS: Minimal degree of increased markings at the lung bases with the small bulla in the posterior medial segment of the left lower lobe. This may represent a mild degree of basilar scarring. Coronary artery calcification. There is decreased attenuation of the liver consistent with steatosis. Scattered small hypodensities are seen in the right lobe of the liver suggestive of small cysts. Findings suggestive of a gallbladder polyps adherent to the gallbladder wall. Normal spleen. Normal pancreas. Normal bilateral adrenal glands. Normal right kidney. Normal left kidney. Incidental note is made of a left retroaortic renal vein. Normal visualized stomach. Normal small intestine. There are multiple colonic diverticula consistent with diverticulosis. The appendix is visualized and appears normal. There is scattered atherosclerotic calcification of the abdominal aorta, without a demonstrated aneurysm. Normal inferior vena cava. Normal retroperitoneum. Diffuse bladder wall thickening. There is enlargement of the prostate gland. The prostate measures 4.5 cm x 4 cm. This causes indentation at the bladder base. There is a small umbilical hernia containing fat. Straightening of the normal lumbar lordosis. Marked degree of disc space narrowing at the L4-L5 level with subchondral sclerosis. CT/CT Abd/Pelvis W/WO Contrast IMPRESSION: Fatty infiltration of the liver. Findings suggestive of small hepatic cysts. Findings suggestive of gallbladder polyps. Prostatic enlargement with indentation of the bladder base. Diffuse bladder wall thickening. Electronically Signed: Benjamin Avila MD at 14:45 EDT ,
[2024-01-14 18:02] LABS: CREATININE FINGERSTICK < 1.0 mg/dL (0.70-1.30); EGFR FINGERSTICK > 60.0000 mL/min (>60)
== END | disposition home or self-care (01) ==
PROVIDERS: PCP Nurse Practitioner; Referring Provider Urology; Visit Provider Urology
DX: R31.0 Gross hematuria (principal)
CPT/HCPCS: 74178; Q9967

== ENCOUNTER → 2024-06-16 | Outpatient (CLI) | payer MEDICARE, SELFPAY ==
[2024-06-16 21:33] LABS: Absolute Lymphocyte Count 1.57 X10^3/uL (0.83-4.51); Absolute Neutrophil Count 4.6 X10^3/uL (2.0-7.7); Basophil# 0.08 X10^3/uL; Basophil% 1.1 % (0-1); Eosinophil# 0.33 X10^3/uL; Eosinophils% 4.5 % (0-5); Lymphocyte # 1.57 X10^3/ul (0.83-4.51); Lymphocyte % 21.3 % (19-41); Mean Corp Hgb Conc 32.6 g/dL (32-36); Mean Corpuscular Hgb 30.8 pg (27.0-32.0); Mean Corpuscular Volume 94.7 fL (80-94); Mean Platelet Vol. 12.4 fl (6.2-12.0); Monocyte# 0.74 X10^3/uL; NRBC Flagged by Analyzer 0 % (0-5); Neutrophil # 4.63 X10^3/uL (2.7-7.7); Neutrophil % 62.8 % (47-70); Platelet Count 232 K/mm3 (150-450); RBC Distribution Width CV 13.2 % (11.6-14.6); Red Blood Count 4.54 M/mm3 (4.6-6.2); White Blood Count 7.4 K/mm3 (4.4-11.0)
[2024-06-16 21:47] LABS: ALB/GLOB Ratio 1.2 RATIO (0.9-2.4); AST(SGOT) 46 U/L (15-37); Alanine Aminotransfer ALT/SGPT 65 U/L (16-61); Albumin, Serum 4.1 g/dL (3.2-5.0); Alkaline Phosphatase 45 U/L (45-117); Anion Gap 8 (5-15); BUN 19 mg/dL (7-18); BUN/Creat Ratio 19.5 RATIO (10-20); Calcium,Total 9.9 mg/dL (8.5-10.1); Chloride 104 mmol/L (98-107); Cholesterol 244 mg/dL (200); Creatinine, Serum 0.98 mg/dL (0.70-1.30); EST Glomerular Filtration Rate 80 mL/min (>60); Est Glom Filt Rate - Afr Amer 97 mL/min (>60); Globulin 3.5 g/dL (2.2-4.2); Glucose 93 mg/dL (74-106); High Density Lipoprotein 139 mg/dL; Potassium 4.3 mmol/L (3.5-5.1); Protein, Total 7.6 g/dL (6.4-8.2); Sodium Level 141 mmol/L (136-145); Triglycerides 98 mg/dL; Very Low Density Lipoprotein 20 mg/dL (5-40)
== END | disposition home or self-care (01) ==
PROVIDERS: PCP Nurse Practitioner; Referring Provider Nurse Practitioner; Visit Provider Nurse Practitioner
DX: E78.00 Pure hypercholesterolemia, unspecified (principal); R79.89 Other specified abnormal findings of blood chemistry; N52.9 Male erectile dysfunction, unspecified; R35.0 Frequency of micturition
CPT/HCPCS: 80053; 80061; 85025

== ENCOUNTER → 2025-01-25 | Outpatient (CLI) | payer MEDICARE, SELFPAY | END | disposition home or self-care (01) | LOC: LAB 13:20 | PROVIDERS: PCP Nurse Practitioner; Referring Provider Nurse Practitioner; Visit Provider Nurse Practitioner | DX: Z12.5 Encounter for screening for malignant neoplasm of prostate (principal) | CPT/HCPCS: 36415; 84153; G0103 ==

== ENCOUNTER 2025-02-14 15:01 | Emergency (ER) | payer MEDICARE, SELFPAY ==
[2025-02-14] VITALS (8 sets, daily range): BP systolic 122–167; BP diastolic 72–105; PULSE 89–128; RESP 12–27; TEMP 36.3–36.6; O2SAT 95–98; BMI 23.7
--- NOTE | 2025-02-14 15:16 | EKG12_ITS ---
Test Reason : CP Blood Pressure : */* mmHG Vent. Rate : 130 BPM Atrial Rate : 131 BPM P-R Int : 180 ms QRS Dur : 70 ms QT Int : 322 ms P-R-T Axes : * -4 238 degrees QTcB Int : 473 ms Sinus tachycardia with occasional Premature ventricular complexes ST depression, consider subendocardial injury Nonspecific T wave abnormality Abnormal ECG Confirmed by LIUDMILA LIN, GANGA ([id number]), food editor DANIA POSADAS ([id number]) on 02/15/2025 9:24:53 AM Referred By: Champ De La Garza Confirmed By: GANGA NUR MD
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
[2025-02-14 15:26] LABS: Absolute Lymphocyte Count 2.02 X10^3/uL (0.83-4.51); Absolute Neutrophil Count 5.4 X10^3/uL (2.0-7.7); Basophil# 0.09 X10^3/uL; Basophil% 1.1 % (0-1); Eosinophil# 0.15 X10^3/uL; Eosinophils% 1.8 % (0-5); Hematocrit 44.5 % (40-54); Hemoglobin 15.4 g/dL (13.0-16.5); Lymphocyte # 2.02 X10^3/ul (0.83-4.51); Lymphocyte % 24.1 % (19-41); Mean Corp Hgb Conc 34.6 g/dL (32-36); Mean Corpuscular Hgb 31.3 pg (27.0-32.0); Mean Corpuscular Volume 90.4 fL (80-94); Mean Platelet Vol. 11.4 fl (6.2-12.0); Monocyte# 0.69 X10^3/uL; Monocyte% 8.2 % (0-10); NRBC Flagged by Analyzer 0 % (0-5); Neutrophil # 5.39 X10^3/uL (2.7-7.7); Neutrophil % 64.4 % (47-70); Platelet Count 230 K/mm3 (150-450); RBC Distribution Width CV 13.5 % (11.6-14.6); RBC Distribution Width SD 45.5 fl (35.1-43.9); Red Blood Count 4.92 M/mm3 (4.6-6.2); White Blood Count 8.4 K/mm3 (4.4-11.0)
--- NOTE | 2025-02-14 15:50 | RAD_ITS ---
EXAM: XR Chest, 2 Views CLINICAL INDICATION: CHEST PAIN TECHNIQUE: Frontal and lateral views of the chest. COMPARISON: No relevant prior studies available. FINDINGS: LUNGS AND PLEURAL SPACES: Unremarkable. No consolidation. No pneumothorax. HEART: Unremarkable. No cardiomegaly. MEDIASTINUM: Unremarkable. Normal mediastinal contour. BONES/JOINTS: Unremarkable. No acute fracture. RAD/Chest PA and Lateral IMPRESSION: No acute cardiopulmonary process. Reading Location: [id number]
[2025-02-14 15:53] LABS: D-Dimer Quantitative (DVT/PE) 1.03 FEU/ug/m (0.27-0.49)
--- NOTE | 2025-02-14 15:53 | CT_ITS ---
PROCEDURE: CTA CHEST W/WO CONTRAST 02/14/2025 REASON FOR EXAM: ELEVATED D-DIMER, SOB TECHNIQUE: CTA axial imaging of the chest with intravenous contrast. Multiplanar and multisequence images were obtained. PATIENT PREPARATION: Per protocol One or more dose reduction techniques were used (e.g., Automated exposure control, adjustment of the mA and/or kV according to patient size, use of iterative reconstruction technique). CONTRAST: Omnipaque 350 VOLUME: 100 mL Gauge IV COMPARISON: Chest radiograph 02/14/2025 FINDINGS: Hardware: None Lymph nodes: Multiple prominent-mildly enlarged hilar and mediastinal lymph nodes, which are likely reactive. For example 14 mm subcarinal nodes (series 2, image 111); 11 mm right hilar node (image 102). Heart: No cardiomegaly. No coronary artery calcification. No pericardial effusion. Thoracic Aorta: No thoracic aortic aneurysm or dissection. Mild atherosclerotic calcifications. Pulmonary Vessels: No large central pulmonary emboli are identified. Contrast timing is suboptimal for evaluation of more distal branches. Most Proximal Level of Embolus (if embolus present): None Lungs and Airways: Central airways are patent without endobronchial lesions. Patchy opacities in bilateral lower lobes, likely infectious/inflammatory in etiology. Few scattered indeterminate less than 6 mm pulmonary nodules are noted. For example 3 mm left upper lobe nodule (series 2, image 100) no pneumothorax. No pleural effusion. Mild biapical scarring. Upper Abdomen: Severe hepatic steatosis. Bones: Mild degenerative changes of the thoracic spine. Soft tissues: Thyroid gland is unremarkable. Soft tissues of the chest wall are within normal limits. CT/CTA Chest W/WO Contrast IMPRESSION: No evidence of pulmonary embolism. Patchy opacities bilateral lower lobes,, likely a combination of atypical pneum onia and atelectasis. Multiple prominent-mildly enlarged likely reactive mediastinal and hilar lymph nodes. Reading Location: [facility]
[2025-02-14 15:54] LABS: Anion Gap 23 (5-15); BUN 19 mg/dL (4-19); BUN/Creat Ratio 24.6 RATIO (10-20); Calcium,Total 9.9 mg/dL (7.6-11.0); Carbon Dioxide 19.2 mmol/L (21.0-32.0); Chloride 96 mmol/L (98-108); Creatinine, Serum 0.78 mg/dL (0.70-1.20); EST Glomerular Filtration Rate 94 (>60); Estimated Creatinine Clearance 79.56 ml/min (50-250); Glucose 117 mg/dL (70-99); Potassium 3.8 mmol/L (3.3-5.1); Sodium Level 138 mmol/L (133-145); Troponin T High Sensitivity 10 ng/L (<=22)
[2025-02-14] MEDS: Doxycycline 100 MG CAPSULE PO (18:42)
== END 2025-02-14 18:48 | disposition home or self-care (01) ==
PROVIDERS: Physician Assistant; Emergency Provider Emergency Medicine; PCP Nurse Practitioner; Referring Provider Emergency Medicine; Visit Provider Emergency Medicine
DX: J18.9 Pneumonia, unspecified organism (principal); R00.2 Palpitations; R00.0 Tachycardia, unspecified; R06.02 Shortness of breath; R07.9 Chest pain, unspecified; Z96.619 Presence of unspecified artificial shoulder joint
CPT/HCPCS: 71046; 71275; 80048; 84443; 84484; 85025; 85379; 93005; 99284; Q9967; A4216

== ENCOUNTER → 2025-03-19 | Outpatient (CLI) | payer MEDICARE, SELFPAY ==
--- NOTE | 2025-03-19 07:47 | ECHOD_ITS ---
Reason For Study Reason For Study: PALPITATIONS Procedure This was a 2D Doppler, Color Flow transthoracic echocardiogram. Exam performed in department. Left Ventricle Normal LV size. The estimated ejection fraction is 60 %. No evidence for diastolic dysfunction. No regional wall motion abnormalities noted. Right Ventricle Normal RV size. Normal systolic function. Atria The left and right atria are normal. No doppler evidence for ASD. Mitral Valve There is no mitral valve stenosis. Trivial mitral valve insufficiency. Tricuspid Valve There is no tricuspid stenosis. Trivial tricuspid valve insufficiency. Pulmonary artery systolic pressure is 25 mmHg. Aortic Valve Trisinus/trileaflet aortic valve. There is no aortic stenosis. No aortic valve insufficiency. Pulmonic Valve There is no pulmonic valvular stenosis. No pulmonic valve insufficiency. Great Vessels Normal sized aortic root. Pericardium/Pleural No pericardial effusion. MMode/2D Measurements & Calculations LVIDd: 4.6 cm IVSd: 0.84 cm LVOT diam: 2.0 cm LVIDs: 3.3 cm LVPWd: 0.79 cm LVOT area: 3.2 cm2 RVDd: 3.5 cm FS: 27.9 % Ao root diam: 3.9 cm LAV(MOD-bp): 33.9 ml LVAd ap4: 27.7 cm2 LAV(MOD-bp) Indexed: 18.9 ml/m2 LVLd ap4: 8.5 cm LAV(MOD-sp2): 38.1 ml EDV(MOD-sp4): 76.5 ml LAV(MOD-sp4): 29.1 ml EDV(sp4-el): 76.5 ml LVAs ap4: 13.2 cm2 LVLs ap4: 6.4 cm ESV(MOD-sp4): 25.4 ml ESV(sp4-el): 23.1 ml EF(MOD-sp4): 66.8 % EF(sp4-el): 69.8 % SV(MOD-sp4): 51.1 ml SV(sp4-el): 53.4 ml LA A4 area: 12.7 cm2 SI(MOD-sp4): 28.4 ml/m2 LA dimension(2D): 3.1 cm RA A4 area: 14.5 cm2 Time Measurements MV dec time: 0.19 sec Doppler Measurements & Calculations MV E max dominic: 43.6 cm/sec Lat Peak E' Dominic: 8.6 cm/sec Med Peak E' Dominic: 7.1 cm/sec MV A max dominic: 44.3 cm/sec E/E' lat: 5.1 E/E' med: 6.1 MV E/A: 0.98 MV V2 max: 65.7 cm/sec Ao V2 max: 90.9 cm/sec MV max P.7 mmHg MV dec slope: 239.0 cm/sec2 Ao max P.3 mmHg MV V2 mean: 41.3 cm/sec Ao V2 mean: 62.5 cm/sec MV mean P.80 mmHg Ao mean P.8 mmHg MV V2 VTI: 13.7 cm Ao V2 VTI: 18.1 cm AV (velocity ratio): 0.74 MVA(VTI): 3.1 cm2 GAMALIEL(I,D): 2.3 cm2 GAMALIEL(V,D): 2.6 cm2 LV V1 max: 75.1 cm/sec SV(LVOT): 42.5 ml TR max dominic: 245.3 cm/sec LV V1 max P.3 mmHg TR max P.1 mmHg LV V1 mean P.3 mmHg LV V1 mean: 53.2 cm/sec LV V1 VTI: 13.4 cm ECHO/Echo Complete Interpretation Summary The estimated ejection fraction is 60 %. No evidence for diastolic dysfunction. Trivial mitral valve insufficiency. Ordering Physician: Josue Sequeira Referring Physician: Josue Sequeira Performed By: Kari Armstrong RCS
--- OUTSIDE RECORDS SUMMARY | 2025-03-19 08:11 | XMS RPT_ITS | CCD ---
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 L100.0100, L500.4100 ####[facility] [address] [place], [address] AST [Catalytic activity/Vol] 46 U/L High 15-37 [facility] Comment on above: Performed By: #### L 500.4050, L100.0100, L500.4100 ####[facility] [address] [place], [address] Bilirubin [Mass/Vol] 0.60 mg/dL Normal 0.20-1.00 [facility] Comment on above: Result Comment: For patients on eltrombopag therapy, use of [employer] [place] TBIL is not recommended. Performed By: #### L 500.4050, L100.0100, L500.4100 ####[facility] [address] [place], [address] BUN/CRE 19.5 RATIO Normal 10-20 [facility] Comment on above: Performed By: #### L 500.4050, L100.0100, L500.4100 ####[facility] [address] [place], [address] CA,Total 9.9 mg/dL Normal 8.5-10.1 [facility] Comment on above: Performed By: #### L 500.4050, L100.0100, L500.4100 ####[facility] [address] [place], [address] Chloride [Moles/Vol] 104 mmol/L Normal 98-107 [facility] Comment on above: Performed By: #### L 500.4050, L100.0100, L500.4100 ####[facility] [address] [place], [address] CO2 [Moles/Vol] 29.0 mmol/L Normal 21.0-32.0 [facility] Comment on above: Performed By: #### L 500.4050, L100.0100, L500.4100 ####[facility] [address] [place], [address] Creatinine [Mass/Vol] 0.98 mg/dL Normal 0.70-1.30 [facility] Comment on above: Result Comment: The validity of the calculated GFR GFRAA in patients over 70 years has not been determined. Clinical correlation is essential. Performed By: #### L 500.4050, L100.0100, L500.4100 ####[facility] [address] [place], [address] EST GFR - AA 97 mL/min Normal >60 [facility] Comment on above: Result Comment: Afri can [place] GFR Calc Performed By: #### L 500.4050, L100.0100, L500.4100 ####[facility] [address] [place], [address] GAP 8 Normal 5-15 [facility] Comment on above: Performed By: #### L 500.4050, L100.0100, L500.4100 ####[facility] [address] [place], [address] GFR/1.73 sq M.predicted among non-blacks MDRD (S/P/Bld) [Vol rate/Area] 80 mL/min/{1.73_m2} Normal >60 [facility] Comment on above: Result Comment: Non- GFR Calc Performed By: #### L 500.4050, L100.0100, L500.4100 ####[facility] [address] [place], [address] Globulin (S) [Mass/Vol] 3.5 g/dL Normal 2.2-4.2 [facility] Comment on above: Performed By: #### L 500.4050, L100.0100, L500.4100 ####[facility] [address] [place], [address] Glucose [Mass/Vol] 93 mg/dL Normal 74-106 [facility] Comment on above: Performed By: #### L 500.4050, L100.0100, L500.4100 ####[facility] [address] [place], [address] Potassium [Moles/Vol] 4.3 mmol/L Normal 3.5-5.1 [facility] Comment on above: Performed By: #### L 500.4050, L100.0100, L500.4100 ####[facility] [address] [place], [address] Sodium [Moles/Vol] 141 mmol/L Normal 136-145 [facility] Comment on above: Performed By: #### L 500.4050, L100.0100, L500.4100 ####[facility] [address] [place], [address] T PROT 7.6 g/dL Normal 6.4-8.2 [facility] Comment on above: Performed By: #### L 500.4050, L100.0100, L500.4100 ####[facility] [address] [place], [address] Urea nitrogen [Mass/Vol] 19 mg/dL High 7-18 [facility] Comment on above: Performed By: #### L 500.4050, L100.0100, L500.4100 ####[facility] [address] [place], [address] Lipid Profileon 06-16-2024 Cholesterol [Mass/Vol] 244 mg/dL High 200 [facility] Comment on above: Result Comment: <200 mg/dL Desirable 200-240 mg/dL Borderline >240 mg/dL High Risk Performed By: #### L 500.4050, L100.0100, L500.4100 ####[facility] [address] [place], [address] Cholesterol in HDL [Mass/Vol] 139 mg/dL Normal [facility] Comment on above: Result Comment: The drugs N-Acetylcysteine and Metamizole may falsely depress this assay. Reference Range HDL <40 mg/dL Low HDL Cholesterol HDL >or= 60 mg/dL High HDL Cholesterol Performed By: #### L 500.4050, L100.0100, L500.4100 ####[facility] [address] [place], [address] Cholesterol in LDL [Mass/Vol] 85 mg/dL Normal 0-130 [facility] Comment on above: Performed By: #### L 500.4050, L100.0100, L500.4100 ####[facility] [address] [place], [address] Cholesterol in VLDL [Mass/Vol] 20 mg/dL Normal 5-40 [facility] Comment on above: Performed By: #### L 500.4050, L100.0100, L500.4100 ####[facility] [address] [place], [address] Triglyceride [Mass/Vol] 98 mg/dL Normal [facility] Comment on above: Result Comment: The drugs N-Acetylcysteine and Metamizole may falsely depress this assay. Serum Triglycerides Reference Interval Normal <150 mg/dL Borderline high 150 - 199 mg/dL High 200 - 499 mg/dL Very High > or = 500 mg/dL Performed By: #### L 500.4050, L100.0100, L500.4100 ####[facility] [address] [place], [address] Basophil percentageOrdered B y: Mark Preston on 01-14-2024 Basophil percentage < 1.0 mg/dL 0.70-1.30 [facility] No Panel InformationOrdered By: Mark Preston on 01-14-2024 Bedside Estimated GFR (eGFR) > 60.0000 mL/min >60 [facility] No Panel InformationOrdered By: Mirna Gerard on 01-02-2024 Prostate Specific Antigen Screen 2.20 ng/mL 0.00-4.00 [facility] Comment on above: This test was perfor med using the TPSA assay method [facility]. Values obtained with differentassay methods cannot be used interchangably.When changing PSA assays in the course of monitoring apatient, additional sequential testing should be carriedout to confirm baseline values. Absolute lymphocyte countOrd ered By: Velia Chavez on 07-01-2023 Lymphocytes Auto (Unsp spec) [#/Vol] 1.70 10*3/uL 0.83-4.51 [facility] Basophil percentageOrdered B y: Velia Chavez on 07-01-2023 Basophils/100 WBC (Bld) 1.7 % 0-1 [facility] Bilirubin [Mass/Vol] 0.30 mg/dL 0.20-1.00 [facility] Comment on above: For patients on eltr ombopag therapy, use of [place] TBIL is not recommended. Chloride [Moles/Vol] 105 mmol/L 98-107 [facility] Cholesterol [Mass/Vol] 240 mg/dL <200 [facility] Comment on above: <200 mg/dL Desirable 200-240 mg/dL Borderline >240 mg/dL High Risk Eosinophils/100 WBC (Bld) 6.2 % 0-5 [facility] Glucose [Mass/Vol] 109 mg/dL 74-106 [facility] Comment on above: Fasting Glucose resu lt from 100 to 125 mg/dL suggests IMPAIRED HOMEOSTASIS per A.D.A. criteria. Neutrophils (Bld) [#/Vol] 3.7 10*3/uL 2.0-7.7 [facility] Neutrophils/100 WBC (Bld) 56.5 % 47-70 [facility] Potassium [Moles/Vol] 4.2 mmol/L 3.5-5.1 [facility] Protein [Mass/Vol] 7.5 g/dL 6.4-8.2 [facility] Sodium [Moles/Vol] 141 mmol/L 136-145 [facility] Triglyceride [Mass/Vol] 125 mg/dL <199 [facility] Comment on above: The drugs N-Acetylcy steine and Metamizole may falsely depress this assay.Serum Triglycerides Reference Interval Normal <150 mg/dL Borderline high 150 - 199 mg/dL High 200 - 499 mg/dL Very High > or = 500 mg/dL WBC (Bld) [#/Vol] 6.5 10*3/uL 4.4-11.0 [facility] Blood erythrocytes count (nu mber/volume)Ordered By: Velia Chavez on 07-01-2023 RBC (Bld) [#/Vol] 4.72 10*6/uL 4.6-6.2 [facility] Blood hemoglobin measurement (mass/volume)Ordered By: Velia Chavez on 07-01-2023 Hemoglobin (Bld) [Mass/Vol] 14.6 g/dL 13.0-16.5 [facility] Blood lymphocytes/100 leukoc ytesOrdered By: Velia Chavez on 07-01-2023 Lymphocytes/100 WBC (Bld) 26.3 % 19-41 [facility] Blood monocytes/100 leukocyt esOrdered By: Velia Chavez on 07-01-2023 Monocytes/100 WBC (Bld) 9.1 % 0-10 [facility] Blood platelet mean volumeOr dered By: Velia Chavez on 07-01-2023 Platelet mean volume (Bld) [Entitic vol] 12.0 fL 6.2-12.0 [facility] Determination of erythrocyte mean corpuscular volume (MCV)Ordered By: Velia Chavez on 07-01-2023 MCV (RBC) [Entitic vol] 95.3 fL 80-94 [facility] Hematocrit Auto (Bld) [Volum e fraction]Ordered By: Velia Chavez on 07-01-2023 Hematocrit (Bld) [Volume fraction] 45.0 % 40-54 [facility] Laboratory - Chemistry and C hemistry - challengeOrdered By: Velia Chavez on 07-01-2023 ALP [Catalytic activity/Vol] 41 U/L 45-117 [facility] ALT [Catalytic activity/Vol] 37 U/L 16-61 [facility] CO2 [Moles/Vol] 32.0 mmol/L 21.0-32.0 [facility] Globulin (S) [Mass/Vol] 3.4 g/dL 2.2-4.2 [facility] Urea nitrogen/Creatinine [Mass ratio] 18.5 mg/mg 10-20 [facility] Laboratory - Hematology and Cell countsOrdered By: Velia Chavez on 07-01-2023 Erythrocyte distribution width (RBC) [Entitic vol] 46.7 fL 35.1-43.9 [facility] Erythrocyte distribution width (RBC) [Ratio] 13.2 % 11.6-14.6 [facility] Immature granulocytes/100 WBC (Bld) 0.200 % 0.0-0.9 [facility] Comment on above: IG% - Immature Granu locytes (promyelocytes, myelocytes and metamyelocytes) > 1% indicates that a LEFT SHIFT is Present. MCH (RBC) [Entitic mass] 30.9 pg 27.0-32.0 [facility] Nucleated RBC/100 WBC (Bld) [Ratio] 0 % 0-5 [facility] MCHC Auto (RBC) [Mass/Vol]Or dered By: Velia Chavez on 07-01-2023 MCHC (RBC) [Mass/Vol] 32.4 g/dL 32-36 [facility] No Panel InformationOrdered By: Velia Chavez on 07-01-2023 Estimated GFR (MDRD) Amer 97 mL/min >60 [facility] Comment on above: GFR Calc Estimated GFR (MDRD) Non-Af Amer 80 mL/min >60 [facility] Comment on above: Non- GFR Calc Platelets bldOrdered By: Parth Chavez on 07-01-2023 Platelets (Bld) [#/Vol] 233 10*3/uL 150-450 [facility] Serum or plasma albumin roger urement (mass/volume)Ordered By: Velia Chavez on 07-01-2023 Albumin [Mass/Vol] 4.1 g/dL 3.2-5.0 [facility] Serum or plasma albumin/glob ulin mass ratioOrdered By: Velia Chavez on 07-01-2023 Albumin/Globulin [Mass ratio] 1.2 {ratio} 0.9-2.4 [facility] Serum or plasma calcium roger urement (mass/volume)Ordered By: Velia Chavez on 07-01-2023 Calcium [Mass/Vol] 9.6 mg/dL 8.5-10.1 [facility] Serum or plasma cholesterol in HDL measurement (mass/volume)Ordered By: Velia Chavez on 07-01-2023 Cholesterol in HDL [Mass/Vol] 104 mg/dL >40 [facility] Comment on above: The drugs N-Acetylcy steine and Metamizole may falsely depress this assay. Reference Range HDL <40 mg/dL Low HDL Cholesterol HDL >or= 60 mg/dL High HDL Cholesterol Serum or plasma cholesterol in VLDL measurement (mass/volume)Ordered By: Velia Chavez on 07-01-2023 Cholesterol in VLDL [Mass/Vol] 25 mg/dL 5-40 [facility] Serum or plasma creatinine m easurement (mass/volume)Ordered By: Velia Chavez on 07-01-2023 Creatinine [Mass/Vol] 0.97 mg/dL 0.70-1.30 [facility] Comment on above: The validity of the calculated GFR & GFRAA in patients over 70 years has not been determined. Clinical correlation is essential. Serum or plasma low density lipoprotein (LDL) cholesterol measurement (mass/volume)Ordered By: Velia Chavez on 07-01-2023 Cholesterol in LDL [Mass/Vol] 111 mg/dL 0-130 [facility] Serum or plasma urea nitroge n measurement (mass/volume)Ordered By: Velia Chavez on 07-01-2023 Urea nitrogen [Mass/Vol] 18 mg/dL 7-18 [facility] Thin prep Papanicolaou smear with manual screeningOrdered By: Velia Chavez on 07-01-2023 Thin prep Papanicolaou smear with manual screening 24 U/L 15-37 [facility] Thin prep Papanicolaou smear with manual screening 4 5-15 [facility] No Panel InformationOrdered By: DAPHNE Paul on 12-11-2022 Prostate Specific Antigen Screen 1.89 ng/mL 0.00-4.00 [facility] Comment on above: This test was perfor med using the TPSA assay method [facility]. Values obtained with differentassay methods cannot be used interchangably.When changing PSA assays in the course of monitoring apatient, additional sequential testing should be carriedout to confirm baseline values. ANES POSTPROC EVALon 021 ANES POSTPROC EVAL HNO ID: [id number] Author: Antolin Saenz MD Service: Anesthesiology Author Type: Physician Type: Anesthesia Postprocedure Evaluation Filed: 05/11/2021 2:15 PM Note Text: POST ANESTHESIA EVALUATION NOTE : 1950 Procedure Summary Date: 05/11/21 Room / Location: [facility] OR / [facility] OR Anesthesia Start: 1126 Anesthesia Stop: 1304 Procedures: ACROMIOPLASTY OR ACROMIONECTOMY, PARTIAL (Right Shoulder) CLAVICULECTOMY PARTIAL (Right Shoulder) RESECTION TENDON, LONG, BICEPS (Right Shoulder) Diagnosis: Primary osteoarthritis of right shoulder Biceps tendon tear Surgeons: Sigifredo Syed MD Responsible Provider: Antolin Saenz MD Anesthesia Type: general, regional ASA Status: 2 Anesthesia Type: general, regional Last vitals Vitals Value Taken Time BP 122/79 05/11/21 1345 Temp 36 ?C (96.8 ?F) 05/11/21 1303 Pulse 63 05/11/21 1345 Resp 15 05/11/21 1345 SpO2 96 % 05/11/21 1345 Post Anesthesia Patient Status Patient Evaluation: PACU. PACU/ICU Patient Condition: stable. Anticipated Disposition: phase 2 then home. Neurological Status: aware and responsive. Pulmonary Status: breathing comfortably on room air Airway Control: returned to baseline unsupported. Cardiovascular Status: stable. Pain Management: clinically adequate - multimodal analgesia pain management approach Postoperative Hydration: acceptable. Intraoperative Events: no significant anesthesia events Recommendation: continue current plan of care. No complications documented. SIGNATURE: Antolin Saenz MD PATIENT NAME: Ashish Alejo DATE: May 11, 2021 TIME: 2:15 PM CSN: [id number] [facility] ANES PRE-OPon 05-11-2021 ANES PRE-OP HNO ID: [id number] Author: Antolin Saenz MD Service: Anesthesiology Author Type: Physician Type: Anesthesia Preprocedure Evaluation Filed: 05/11/2021 9:11 AM Note Text: ANESTHESIOLOGY DAY OF SURGERY NOTE : 1950 Procedure(s) (LRB): ACROMIOPLASTY OR ACROMIONECTOMY, PARTIAL (Right) CLAVICULECTOMY PARTIAL (Right) RESECTION TENDON, LONG, BICEPS (Right) Surgeon(s): Sigifredo Syed MD Estimated body mass index is 22.58 kg/m? as calculated from the following: Height as of 04/16/16: 172.7 cm (5' 8). Weight as of 04/16/16: 67.4 kg (148 lb 8 oz). Most recent hematocrit and potassium results: Hematocrit 43.4 06/26/2013 Potassium 4.3 06/26/2013 Relevant Problems No relevant active problems I - PHYSICAL EVALUATION AIRWAY Patient intubated: No. Mallampati: II. TM distance: >3 FB. Neck ROM: full ROM without neurological symptoms. Mouth opening: adequate. Short neck: no. Thick neck: no DENTAL Dental findings: teeth intact. Additional exam findings: no II - ANESTHESIA PLAN ASA Score: 2 Anesthetic Plan: general and regional NPO Status: adequate Monitoring plan: Standard ASA. Postoperative analgesic plan: parenteral or oral opioids, peripheral nerve block and multimodal analgesia. Anesthetic Risks, Benefits, Alternatives, Personnel Discussed. Consent obtained from: patient.Patient / Surrogate agrees to blood products: yes DNR status not reviewed with patient and/or family prior to surgery. Significant changes in the patient condition since the History and Physical, not otherwise documented in primary service progress note: no. Potential Anesthesia issues that may suggest increased risk of complications or contraindication to planned procedure: none. No vitals data found for the desired time range. Facility-Administered Medications as of 05/11/2021 Medication Dose Route Frequency - sodium chloride 0.9 % (flush) 2-10 mL (BD POSIFLUSH) 2-10 mL INTRAVENOUS q 12 H Outpatient Medications as of 05/11/2021 Medication Sig - Multivitamin capsule Take 1 capsule by mouth once daily. - testosterone 2% cream (CPD) Apply to affected area once daily. - alfuzosin SR (UROXATRAL) 10 mg 24 hr tablet Take 10 mg by mouth once daily. - miconazole nitrate (CRITIC-AID;ALOE VESTA) 2 % oint Apply to affected area twice daily. I have interviewed and examined the patient. I have reviewed the medical record and/or the pre-anesthesia evaluation, pertinent labs, and test results. This contains updated information obtained within 48 hours of Surgery/Procedure. SIGNATURE: Antolin Saenz MD PATIENT NAME: Ashish Alejo DATE: May 11, 2021 TIME: 9:10 AM CSN: [id number] [facility] BRIEF OP NOTon 05-11-2021 BRIEF OP NOT HNO ID: [id number] Author: Sigifredo Syed MD Service: Orthopaedic Surgery Author Type: Physician Type: Brief Op Note Filed: 05/11/2021 12:50 PM Note Text: BRIEF OPERATIVE / PROCEDURE NOTE LOG ID: [id number] Surgery/Procedure Date: 05/11/2021 Incision/Procedure Start Time: 12:00 PM Incision Close/Procedure End Time: Surgeon(s)/Proceduralis t(s) and Electronic Scale Assembler And Tester(s): Surgeon(s) and Role: * Sigifredo Syed MD - Primary Procedure(s): Right shoulder rotator cuff repair, distal clavicle excision, biceps tendon tenotomy Anesthesia: General Findings: Right shoulder rotator cuff tear, A/C joint arthrosis, biceps tendon tendinosis Estimated Blood Loss: 0 ml Specimens: None Complications: None Pre-Op/Pre-Procedure Diagnosis: Right shoulder A/C joint arthrosis, biceps tendon tendinosis Post-Op/Post-Procedure Diagnosis: same, plus rotator cuff tear SIGNATURE: Sigifredo Syed MD PATIENT NAME: Ashish Alejo DATE: May 11, 2021 TIME: 12:46 PM PAGER/CONTACT #: [facility] HISTORY PHYSICALon HISTORY PHYSICAL HNO ID: [id number] Author: Sigifredo Syed MD Service: Orthopaedic Surgery Author Type: Physician Type: HANDP Filed: 05/11/2021 10:55 AM Note Text: UPDATED HISTORY AND PHYSICAL EXAMINATION PATIENT NAME: Ashish Alejo SERVICE DATE: 05/11/2021 SERVICE TIME: 10:55 AM PHYSICAL EXAM MUST BE COMPLETED ON ADMISSION The History and Physical (completed in the past 30 days) has been reviewed and the patient has been examined. The contents accurately reflect the patient's condition with the following additions or revisions since the HANDP was completed. Examination indicates no changes. This HANDP can be found in the Electronic Medical Record dated 05/11/2021 SIGNATURE: Sigifredo Syed MD DATE: May 11, 2021 TIME: 10:55 AM [facility] NURSING PROGon 05-11-2021 NURSING PROG HNO ID: [id number] Author: Brenda Chacon RN Service: Nursing Author Type: Registered Nurse Type: Nursing Progress Note Filed: 05/11/2021 11:29 AM Note Text: Dr. Saenz at bedside for ultrasound guided Right Interscalene nerve block. RN at bedside, pt monitored throughout, BP 124/85 Pulse 78 Temp 36.4 ?C (97.5 ?F) (Temporal Artery) Resp 10 Ht 172.7 cm (5' 8) Wt 67.1 kg (148 lb) SpO2 98% BMI 22.50 kg/m? .Pt tolerated procedure without difficulty. Versed 2 mg IV given as per MD orders, report to Sonia CUELLAR, Pt was marked by prior to nerve block. [facility] NURSING PROG HNO ID: [id number] Author: Brenda Chacon RN Service: Nursing Author Type: Registered Nurse Type: Nursing Progress Note Filed: 05/11/2021 9:21 AM Note Text: Nursing Progress Note Patient Name: Ashish Alejo Patient Location: [facility] Surgery pt ready for OR, call light in reach, called to bedside. This note was completed by: Brenda Chacon [facility] OPERATIVE NOon 05-11-2021 OPERATIVE NO HNO ID: [id number] Author: Sigifredo Syed MD Service: Orthopaedic Surgery Author Type: Physician Type: Operative Report Filed: 05/23/2021 7:20 AM Note Text: [place] HOSPITAL - Operative Report ASHISH ALEJO : 1950 AGE: 71. SEX: M PATIENT TYPE: A [facility]P [facility] LOCATION: [facility] ATTENDING PHYSICIAN: Sigifredo Syed M.D. CSN NUMBER: [id number] DATE OF SURGERY/PROCEDURE: 05/11/2021 INCISION/PROCEDURE START TIME: 12:00 PM INCISION CLOSE/PROCEDURE END TIME: 12:55 PM PREOPERATIVE DIAGNOSIS: Impingement syndrome, right shoulder with acromioclavicular joint arthrosis and biceps tendon tendinosis. POSTOPERATIVE DIAGNOSIS: Impingement syndrome, right shoulder with acromioclavicular joint arthrosis and biceps tendon tendinosis plus rotator cuff tear. SURGEON: Sigifredo Syed M.D. BARKER PEELER: Nurse Practitioner: Karissa Ordoñez APRN.SUPERVISOR RIVETING Physician Electronic Scale Assembler And Tester: Kavita Rascon PA-C SURGERY/PROCEDURE: 1. Distal clavicle excision. 2. Biceps tendon tenotomy. 3. Rotator cuff repair. ANESTHESIA: General anesthesia with regional nerve block. HISTORY: The patient was given an interscalene nerve block and had a general anesthetic. The right shoulder was prepped with ChloraPrep and draped in the usual manner. The incision site was injected with 0.5% Marcaine with epinephrine. The incision was about 1.5 to 2 inches in length over the superior acromion. It was taken down through soft tissue. The deltoid aponeurosis was incised and the deltoid was dissected away from the bone and creating an opening anteriorly. The distal clavicle had huge osteophytes. I removed about 10 mm of the distal clavicle and cut surface was covered with bone wax. Clavicle still very stable. As part of the exposure, the anterior and anterior acromionectomy were done. A vertical cut and then a beveled cut surface was smoothed with a rasp and covered with bone wax. Rotator cuff was now examined. There was a substantial tear in the right at the insertion. In parts, it was not full-thickness, but it was very close to full thickness and in other parts, it was full thickness. It was repaired with 3-0 Vicryl suture [id number]. Next, the biceps tenotomy was done. The biceps was palpated in the biceps groove. A small incision 1 cm in length was made directly over. The knee was dissected down until I could visualize the tendon. I removed about 2 cm of tendon giving a complete tenotomy of the tendon. The incision that had been made in the biceps tendon groove was repaired with 0 Vicryl. Shoulder was taken through a range of motion and there was no impingement at all against the undersurface of the acromion or the clavicle. The shoulder was irrigated with saline. The deltoid aponeurosis was repaired anatomically using 0 Vicryl sutures. The subcutaneous fat closed with 3-0 Vicryl, skin closed with Monocryl 4-0 subcuticular, reinforced with Exofin. Sterile dressing was applied. He tolerated the procedure well, and returned to the recovery room in satisfactory condition. Sigifredo Syed M.D. RENETTA:[id number] /[id number] Normal [facility] HISTORY PHYSICALon HISTORY PHYSICAL HNO ID: [id number] Author: Sigifredo Syed MD Service: Orthopaedic Surgery Author Type: Physician Type: HANDP Filed: 05/11/2021 10:56 AM Note Text: [facility]- Surgical History and Physical ASHISH ALEJO : 1950 AGE: 71 SEX: M ACCTNUM: [id number] [facility] SVC: [facility] LOCATION: ATTENDING PHYSICIAN: SIGIFREDO SYED M.D. DATE OF SERVICE: 05/10/2021 TIME OF SERVICE: 01:20 PM CHIEF COMPLAINT: Impingement syndrome, right shoulder. HISTORY OF PRESENT ILLNESS: The patient is 71 years old. He has had problems with his right shoulder for about a year. It had originally been injured in a construction accident in 1991, it got real bad about a year ago. It keeps him awake at night. It bothers him to reach and raise, at times extremely uncomfortable. His exam strongly suggest possibly a biceps tendon tendinosis, possible impingement syndrome. He had an MRI on April 07. It did not show rotator cuff tear, but a partial tear of the rotator cuff, showed tearing of the biceps labral complex, considerable arthritis in the AC joint. He is admitted now for surgery which will consist of an anterior acromionectomy, distal clavicle excision, and biceps tendon tenotomy. PAST SURGICAL HISTORY: He has had carpal tunnel releases on both sides, left wrist fusion. PAST MEDICAL HISTORY: Illnesses: he has none. MEDICATIONS: testosterone. ALLERGIES: None. SOCIAL HISTORY: He does smoke cigars. FAMILY HISTORY: Unremarkable. REVIEW OF SYSTEMS: Unremarkable. PHYSICAL EXAM: General: Well-developed and well-nourished male, alert, in moderate pain. HEENT: Normal. Neck: Supple. No nodes palpable. Lungs: Clear. Heart: Normal sinus rhythm. No murmur or gallop. Abdomen: Benign. Extremities: The right shoulder; he has a very prominent AC joint which is very tender. He also has tenderness in the anterior acromion and in the biceps tendon region. He gets the arm up overhead, but not as much with the opposite side, especially in extension. He has a negative drop sign, although there is some crepitus in the midportion of his abduction. Good strength with resisted abduction and resisted external rotation. Routine x-rays are normal. MRI shows osteoarthritis of the AC joint and tearing of the biceps labral complex superiorly. IMPRESSION: Impingement syndrome, right shoulder with acromioclavicular joint arthrosis. PLAN: Right shoulder anterior acromionectomy, distal clavicle excision, and biceps tendon tenotomy. Sigifredo Syed M.D. Orthopedic Surgery RFR:[id number] /[id number] [facility] MRI SHOULDER WO IVCON RTon 0 04-07-2021 MRI SHOULDER WO IVCON RT * * *Final Report* * * DATE OF EXAM: Apr 07 2021 5:01PM [facility] 0240 - MRI SHOULDER WO IVCON RT / PROCEDURE REASON: M25.54 * * * * Physician Interpretation * * * * EXAMINATION: MRI SHOULDER WO IVCON RT HISTORY: Rt shoulder pain since the M25.54 TECHNIQUE: Routine non-contrast MRI of the shoulder. MQ: MRS_1A COMPARISON: None RESULT: TENDONS: Rotator cuff tendons: -Supraspinatus: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 18, 2025 7:11pm Heart palpitations February 09, 2025 10:13 am Additional Source Comments (unrecognized sect ion and content) No Status Records FoundNo Status Records FoundNo Status Records Found INFORMATION SOURCE (unrecogn ized section and content) DATE CREATED AUTHOR 12/03/2018 [facility] DATE CREATED AUTHOR AUTHOR'S ORGANIZ ATION 05/23/2021 [facility] DATE CREATED AUTHOR AUTHOR'S ORGANIZ ATION 02/24/2025 [facility] Care Teams (unrecognized sec tion and content) Team Status: Active Member Role Status Dates Velia Chavez POT SANDER, POT SANDER-C Family Provider Active Velia Chavez POT SANDER, POT SANDER-C Primary Care Provider Active Team Status: Inactive Member Role Status Dates Velia Chavez POT SANDER, POT SANDER-C Primary Care Pr ovider, Attending Provider, Referring Provider Active Team Status: Inactive Member Role Status Dates Velia Chavez POT SANDER, POT SANDER-C Primary Care Provider Active Marcie Paul , POT SANDER-C Attending Provider, Referrin g Provider Active Team Status: Inactive Member Role Status Dates Velia Chavez POT SANDER, POT SANDER-C Primary Care Provider, Attend ing Provider Active Team Status: Inactive Member Role Status Dates Velia Chavez POT SANDER, POT SANDER-C Primary Care Provider Active Mirna Gerard Attending Provider, Referring Provide r Active Team Status: Inactive Member Role Status Dates Velia Chavez POT SANDER, POT SANDER-C Primary Care Provider Active Dr. Mark Preston MD Attending Provider, Referr ing Provider Active Team Status: Inactive Member Role Status Dates Velia Chavez POT SANDER, POT SANDER-C Primary Care Provider Active Start: January 18, 2025 End: January 18, 2025 Velia Chavez POT SANDER, POT SANDER-C Attending Provider Active Start: January 18, 2025 End: January 18, 2025 Velia Chavez POT SANDER, POT SANDER-C Referring Provider Active Start: January 18, 2025 End: January 18, 2025 Team Status: Inactive Member Role Status Dates Velia Chavez POT SANDER, POT SANDER-C Primary Care Provider Active Start: January 25, 2025 End: January 25, 2025 Mirna Mcdanielsing Attending Provider Active Start : January 25, 2025 End: January 25, 2025 Mirna Mcdanielsing Referring Provider Active Start : January 25, 2025 End: January 25, 2025 Team Status: Inactive Member Role Status Dates Velia Chavez POT SANDER, POT SANDER-C Primary Care Provider Active Start: February 09, 2025 End: February 09, 2025 Velia Chavez POT SANDER, POT SANDER-C Referring Provider Active Start: February 09, 2025 End: February 09, 2025 Dr. Garret Sequeira MD Attending Provider Active Start: February 09, 2025 End: February 09, 2025 Team Status: Active Member Role Status Dates Velia Chavez POT SANDER, POT SANDER-C Primary Care Provider Active Team Status: Inactive Member Role Status Dates Velia Chavez POT SANDER, POT SANDER-C Primary Care Provider Active Start: February 14, 2025 End: February 14, 2025 Dr. Champ De La Garza DO Referring Provider Active Start: February 14, 2025 End: February 14, 2025 Dr. Champ De La Garza DO Emergency Provider Active Start: February 14, 2025 End: February 14, 2025 Goals (unrecognized section and content) Goals may be documented in a n alternate sectionGoals may be documented in an alternate sectionGoals may be documented in an alternate sectionGoals may be documented in an alternate sectionGoals may be documented in an alternate sectionGoals may be documented in an alternate section FOR RECORDS PERTAINING TO PATIENTS WHO ARE OR HAVE BEEN ENROLLED IN A CHEMICAL DEPENDENCY/SUBSTANCEABUSE PROGRAM, SOME INFORMATION MAY BE OMITTED. This clinical summary was aggregated from multiple sources. Caution should be exercised in using it in the provision of clinical care. This summary normalizes information from multiple sources, and as a consequence, information in this document may materially change the coding, format and clinical context of patient data. In addition, data may be omitted in some cases. CLINICAL DECISIONS SHOULD BE BASED ON THE PRIMARY CLINICAL RECORDS. [facility]. provides no warranty or guarantee of the accuracy or completeness of information in this document.
== END | disposition home or self-care (01) ==
LOC: CVS 07:47
PROVIDERS: PCP Nurse Practitioner; Referring Provider Internal Medicine Cardiovascular Disease; Visit Provider Internal Medicine Cardiovascular Disease
DX: R00.2 Palpitations (principal)
CPT/HCPCS: 93306